=== PATIENT | female | born 1975 | race Caucasian/White ===

== ENCOUNTER 2023-07-20 15:28 | Emergency (ER) | payer BC ==
[2023-07-20 15:43] VITALS: BP_SYST 140; PULSE 99; RESP 18; TEMP 98.3; O2SAT 98
[2023-07-20] MEDS ORDERED: AMPICILLIN SODIUM/SULBACTAM NA 3 GM in NS 100 ML IV ONE (16:15)
[2023-07-20] MEDS ORDERED: AMPICILLIN SODIUM/SULBACTAM NA 3 GM VIAL ONE (16:35)
[2023-07-20] MEDS ORDERED: FLUCONAZOLE 200 MG TABLET (DIFLUCAN) PO ONE (17:15)
[2023-07-20] MEDS ORDERED: IBUP-1971 PO (17:22)
[2023-07-20] MEDS ORDERED: FLUC200T PO (17:22)
[2023-07-20] MEDS ORDERED: AUG875 PO (17:22)
[2023-07-20 17:30] VITALS: BP_SYST 120; PULSE 70; RESP 19; TEMP 97.6; O2SAT 100
== END 2023-07-20 17:30 | disposition home or self-care (01) ==
LOC: SED 15:28
DX: J32.9 Chronic sinusitis, unspecified (principal); L08.9 Local infection of the skin and subcutaneous tissue, unspecified; Z79.899 Other long term (current) drug therapy
CPT/HCPCS: 99284; 96365; J0295